=== PATIENT | female | born 1995 | race Caucasian/White ===

== ENCOUNTER 2023-07-31 15:01 | Emergency (ER) | payer BC, SELFPAY ==
[2023-07-31] VITALS (12 sets, daily range): BP systolic 107–135; BP diastolic 57–71; PULSE 53–72; RESP 16; TEMP 36.3; O2SAT 93–100; BMI 44.6
--- NOTE | 2023-07-31 17:03 | ED.HA ---
HPI - Headache General Chief Complaint: Headache Stated Complaint: Headache Time Seen by Provider: 07/31/23 16:59 Mode of arrival: Ambulatory History of Present Illness HPI Narrative: 27-year-old female with history of penicillin and sulfa allergy presents with headache. The patient states to me she has known history of pseudotumor cerebri and was recently started on Diamox by Ophthalmology. She states she has had extensive evaluation including with brain MRI in the past. She states she frequently has headaches. Today, around 2:00 p.m. however, she developed sudden left-sided headache that was atypical for her. It was more severe than usual, though she does have substantial headaches sometimes. She denies any visual changes at any time with this. No fevers, chills, nausea or vomiting, trauma, rash, lightheadedness or passing out, neck pain, focal numbness or weakness, hearing changes, difficulty walking or talking or eating. Pain is not clearly worse lying down. It is worse with sound and light however. She avoids NSAIDs. She states she is planning to follow up with Neurosurgery for further care of her pseudotumor cerebri. Family at bedside that can drive. No other new concerns. Related Data Allergies Allergy/AdvReac Type Severity Reaction Status Date / Time Penicillins Allergy Verified 07/31/23 15:43 Sulfa (Sulfonamide Allergy Verified 07/31/23 15:43 Antibiotics) Review of Systems Review of Systems Narrative: Constitutional: no fever, no chills Eyes: no visual disturbance, no discharge Ears, Nose, Mouth, Throat: no rhinorrhea, no sore throat Cardiovascular: no chest pain, no palpitations Respiratory: no cough, no shortness of breath Gastrointestinal: no abdominal pain, no vomiting, no diarrhea Genitourinary: no dysuria, no hematuria Musculoskeletal: no back pain, no neck stiffness Skin: no rash, no wound Neurological: no focal weakness, no focal numbness Patient History Social History Smoking Status: Never smoker Smoking Status: Never smoker Substance Use Type: does not use Exam Narrative Exam Narrative: Const: no acute distress, non toxic appearing; calm, conversant, pleasant Eyes: PERRLA, EOMI, no photophobia, no pain with extraocular motions or double vision ENT: mucous membranes moist Neck: supple, non-tender, no pain or stiffness with flexion and range of motion Resp: no respiratory distress, clear to auscultation bilaterally Card: regular rate and rhythm, no murmurs Abd: non tender diffusely, no rigidity or rebound or guarding Back: no T or L spine tenderness, no CVA tenderness bilaterally Extrem: no deformities, no swelling bilateral lower extremities Neuro: ANOx4. artificial breeding distributor 2-12 intact. No rotatory or vertical nystagmus. Normal tone all extremities. Sensation intact to light touch all extremities. No ankle clonus bilaterally. 5/5 motor strength all extremities. Normal FNF BUE; normal heel-gilmore test BLE. No pronator drift. No dysarthria. No neglect. Grossly normal cognition. Skin: no rash, warm and dry Initial Vital Signs Initial Vital Signs: Vital Signs Temperature 97.4 F L 07/31/23 15:38 Pulse Rate 67 07/31/23 15:38 Respiratory Rate 16 07/31/23 15:38 Blood Pressure 113/60 07/31/23 15:38 Pulse Oximetry 99 07/31/23 15:38 Oxygen Delivery Method Room Air 07/31/23 15:38 Course Course Course Narrative: This presentation is most suggestive of migraine, tension headache,, though I have considered a broad differential including but not limited to pain associated with pseudotumor cerebri, cluster headache, ICH/subarachnoid hemorrhage, ENGRAVER MACHINE infection, venous sinus thrombus, vascular dissection, among others. While I will rule out ICH with head CT, which is occurring within 6 hours of symptoms in a patient who does not report anemia and no should have very high sensitivity, I think this is very unlikely. In addition, the other etiologies above seem very unlikely clinically. Her description of symptoms and lack of positional changes argues against pseudotumor cerebri, and note she has absolutely no visual changes, confirmed multiple times with her; this argues against the need for an emergent lumbar puncture, and she is already on Diamox with reported outpatient follow up. In addition, this presentation is not consistent with infection, with no fevers, no meningeal signs, in this well-appearing patient. No clinical evidence of stroke or focal neurovascular deficits. In this setting, I am obtaining head CT, hCG, giving small fluids along with dexamethasone, magnesium sulfate, Compazine, Tylenol and will closely reassess. hCG negative. Radiology review of HCT below, which I agree with on my independent review: FINDINGS: Image quality: There is artifact associated with the metallic hardware. CSF spaces: Basal cisterns are patent. No extra-axial fluid collections. Ventricles are normal in size and shape. Brain: No midline shift. No intracranial masses or hemorrhage. Garcia-white matter interface is normal. Skull and face: A benign osteoma can be seen along the inner table of the right frontal bone, as on series 3, image 15. Calvarium and visualized facial bones are intact, without suspicious lesions. Sinuses: Visualized sinuses and mastoids are clear. IMPRESSION: Limited intracranial study, without a significant abnormality identified. Dictated by: Eugenio Perez M.D. on 07/31/2023 at 16:49 After migraine cocktail, patient is feeling very well. This is very reassuring, along with multiple reassuring exams. Migraine or tension headache seems most likely this time. She understands not to drive, take sedating medications, or do anything potentially dangerous tonight. She understands importance of close follow up and return precautions. Discharging in stable condition. Repeat exam and vital signs reassuring. Questions answered. Plan reviewed. Patient discharged in stable condition. Orders Ordered: ED Orders 07/31/23 17:16 CT head/brain wo con Stat Discontinued Medications Acetaminophen (Acetaminophen 325 Mg Tablet) 975 mg PO NOW ONE Stop: 07/31/23 17:18 Last Admin: 07/31/23 17:37 Dose: 975 mg Documented By: BEKA Dexamethasone (Dexamethasone 10 Mg/Ml Vial) 10 mg IV NOW ONE Stop: 07/31/23 17:18 Last Admin: 07/31/23 17:36 Dose: 10 mg Documented By: BEKA Magnesium Sulfate (Magnesium Sulfate) 2 gm in 50 mls @ 25 mls/hr IV NOW ONE Stop: 07/31/23 19:16 Last Infusion: 07/31/23 19:15 Dose: Infused Documented By: BEKA Co-signed By: DANIELA Admin: 07/31/23 17:39 Dose: 25 mls/hr Documented By: BEKA Co-signed By: MYLES Prochlorperazine (Prochlorperazine 10 Mg/2 Ml Vial) 10 mg IV NOW ONE Stop: 07/31/23 17:18 Last Admin: 07/31/23 17:37 Dose: 10 mg Documented By: BEKA Vital Signs Vital signs: Vital Signs - 8 hr 07/31/23 15:38 07/31/23 16:57 07/31/23 16:58 Temperature 97.4 F L Pulse Rate 67 Respiratory Rate 16 Blood Pressure 113/60 113/57 L Pulse Oximetry 99 93 Oxygen Delivery Method Room Air 07/31/23 16:58 07/31/23 17:00 07/31/23 17:53 Temperature Pulse Rate 61 58 L Respiratory Rate Blood Pressure Pulse Oximetry 99 100 95 Oxygen Delivery Method 07/31/23 17:54 07/31/23 17:54 07/31/23 18:00 Temperature Pulse Rate 63 72 Respiratory Rate Blood Pressure 107/58 L Pulse Oximetry 98 95 Oxygen Delivery Method 07/31/23 18:01 07/31/23 18:01 07/31/23 18:30 Temperature Pulse Rate 71 67 Respiratory Rate Blood Pressure 135/71 Pulse Oximetry 97 98 Oxygen Delivery Method 07/31/23 18:31 07/31/23 18:31 07/31/23 18:43 Temperature Pulse Rate 60 58 L Respiratory Rate Blood Pressure 122/60 Pulse Oximetry 97 98 Oxygen Delivery Method Room Air 07/31/23 18:43 07/31/23 19:00 07/31/23 19:00 Temperature Pulse Rate 53 L Respiratory Rate Blood Pressure 117/58 L 116/58 L Pulse Oximetry 97 Oxygen Delivery Method Room Air MDM - Headache Lab Data Labs: Point of Care Testing Test Results Negative Discharge Plan Departure Patient Disposition: Home Clinical Impression: Headache Instructions: DI for Headache Activity Restrictions/Additional Instructions: It was a pleasure taking care of you today. It is important to fully read and understand the below. Please ask us if you have any questions. Your head CT is attached and overall reassuring, though there are some incidental findings for follow up. You received sedating medications in the ER today; do not take other sedating medications, drive, or do anything potentially dangerous today. Please see your primary doctor and outpatient team within 3-5 days for reassessment and bring this sheet. No tests or assessments are perfect, and your condition could private branch exchange service adviser time. If your symptoms change or worsen, it is very important you immediately seek medical care. If you have any new or worsening pain, shortness of breath, fever, vomiting, confusion, numbness, weakness, visual or hearing changes, trouble walking or talking or eating, or anything else that concerns you, please immediately seek medical care. If you have been prescribed any medications: please read the drug package inserts on how to properly use the medication and any potential side effects. If you had labs (blood tests) or imaging (CT scan or x-rays) done during your visit: please follow up on the results of these with your primary care doctor, as discussed. In addition, please know the results we received today may be preliminary. Our usual practice is to follow up on tests within a few days of a patient's discharge from the Emergency Department and notify you of any changes. These may lead to changes to your treatment plan. However, the best way to obtain and interpret these test results is through your Primary Care Provider. If you need to update your contact information, please stop by the front end application developer and alert the Registration personnel before you leave the Emergency Department. Thank you for the opportunity to participate in your healthcare. We are always here and happy to see you in the future. --- PLEASE TAKE THE ATTACHED IMAGING TO YOUR DOCTORS: FINDINGS: Image quality: There is artifact associated with the metallic hardware. CSF spaces: Basal cisterns are patent. No extra-axial fluid collections. Ventricles are normal in size and shape. Brain: No midline shift. No intracranial masses or hemorrhage. Garcia-white matter interface is normal. Skull and face: A benign osteoma can be seen along the inner table of the right frontal bone, as on series 3, image 15. Calvarium and visualized facial bones are intact, without suspicious lesions. Sinuses: Visualized sinuses and mastoids are clear. IMPRESSION: Limited intracranial study, without a significant abnormality identified. Dictated by: Eugenio Perez M.D. on 07/31/2023 at 16:49 Referrals: Carson Perez DO [Primary Care Provider] - Stand Alone Forms: Patient Portal/API
--- NOTE | 2023-07-31 17:16 | DI.CT.S_ITS ---
PROCEDURE: CT HEAD/BRAIN WO CON INDICATIONS: L sided sudden headache, starting 2PM today TECHNIQUE: Noncontrast 4.5 mm thick angled axial sections acquired from the foramen magnum to the vertex, with coronal and sagittal reformats. For radiation dose reduction, the following was used: automated exposure control, adjustment of mA and/or kV according to patient size. COMPARISON: None. FINDINGS: Image quality: There is artifact associated with the metallic hardware. CSF spaces: Basal cisterns are patent. No extra-axial fluid collections. Ventricles are normal in size and shape. Brain: No midline shift. No intracranial masses or hemorrhage. Garcia-white matter interface is normal. Skull and face: A benign osteoma can be seen along the inner table of the right frontal bone, as on series 3, image 15. Calvarium and visualized facial bones are intact, without suspicious lesions. Sinuses: Visualized sinuses and mastoids are clear. IMPRESSION: Limited intracranial study, without a significant abnormality identified. Dictated by: Eugenio Perez M.D. on 07/31/2023 at 16:49 Approved by: Eugenio Perez M.D. on 07/31/2023 at 16:49
[2023-07-31] MEDS: DEXAMETHASONE 10 MG/ML VIAL IV (17:36)
[2023-07-31] MEDS: PROCHLORPERAZINE 10 MG/2 ML VIAL IV (17:37)
[2023-07-31] MEDS: ACETAMINOPHEN 325 MG TABLET 975 MG PO (17:37)
[2023-07-31] MEDS: MAGNESIUM SULFATE 2 GM/50 ML PIGGYBACK IV (17:39)
== END 2023-07-31 19:19 | disposition home or self-care (01) ==
PROVIDERS: Emergency Provider Emergency Medicine; PCP Family Medicine; Referring Provider Student in an Organized Health Care Education/Training Program
DX: R51.9 Headache, unspecified (principal)
CPT/HCPCS: 36415; 70450; 81025; 96365; 96366; 96375; 99283; 99284; J0780; J1100; J3475